=== PATIENT | male | born 1955 | race Asian ===

== ENCOUNTER 2022-10-19 11:25 | Emergency (ER) | payer OTHER ==
[~2022-10-19] VITALS: Ht 188 cm; Wt 97.5 kg
[2022-10-19 13:45] VITALS: BP 138/84; TEMP 98.6
== END 2022-10-19 13:46 | disposition home or self-care (01) ==
LOC: ED 11:25
DX: J20.9 Acute bronchitis, unspecified (principal); Z20.822 Contact with and (suspected) exposure to COVID-19
CPT/HCPCS: 82948; 87502; 87635; 87651; 99283; U0003